=== PATIENT | female | born 1975 | race Caucasian/White ===

== ENCOUNTER → 2017-02-12 | Outpatient (CLI) | payer OTHER ==
[2013-09-06 23:31] VITALS: BP 110/72
[2017-02-12 09:17] LABS: BASOPHILS # (AUTO) 0.1 X10^3/uL (0.0-0.1); BASOPHILS % (AUTO) 1.2 % (0.2-1.0); EOSINOPHILS # (AUTO) 0.1 x10^3/uL (0.0-0.2); EOSINOPHILS % (AUTO) 1.9 % (0.9-2.9); HEMATOCRIT 39.9 % (36.0-47.0); HEMOGLOBIN 13.3 g/dL (12.0-16.0); LYMPHOCYTES # (AUTO) 1.7 X10^3/uL (1.3-2.9); LYMPHOCYTES % (AUTO) 28.9 % (21.0-51.0); MEAN CORPUSCULAR HEMOGLOBIN 28.9 pg (27.0-34.0); MEAN CORPUSCULAR HGB CONC 33.2 g/dL (33.0-35.0); MEAN CORPUSCULAR VOLUME 87.1 fL (80.0-100.0); MEAN PLATELET VOLUME 8.8 fL (7.4-11.0); MONOCYTES # (AUTO) 0.6 x10^3/uL (0.3-0.8); MONOCYTES % (AUTO) 9.8 % (0.0-13.0); NEUTROPHILS # (AUTO) 3.5 x10^3/uL (2.2-4.8); NEUTROPHILS % (AUTO) 58.2 % (42.0-75.0); PLATELET COUNT 241 X10^3/uL (150.0-450.0); RED BLOOD COUNT 4.59 X10^6/uL (3.5-5.4); RED CELL DISTRIBUTION WIDTH 14.8 % (11.6-16.5)
[2017-02-12 10:06] LABS: ALANINE AMINOTRANSFERASE 31 Units/L (12-78); ALBUMIN 3.5 g/dL (3.4-5.0); ALKALINE PHOSPHATASE 47 Units/L (46-116); ASPARTATE AMINO TRANSFERASE 18 Units/L (15-37); BLOOD UREA NITROGEN 17 mg/dL (7-18); CALCIUM 8.4 mg/dL (8.5-10.1); CARBON DIOXIDE 26.6 mmol/L (21-32); CHLORIDE 107 mmol/L (98-107); CREATININE 0.83 mg/dL (0.55-1.02); GLUCOSE 95 mg/dL (65-99); SODIUM 142 mmol/L (136-145); T4 (THYROXINE) 7.7 ug/dL (4.7-13.3); TOTAL PROTEIN 7.1 g/dL (6.4-8.2); TSH (3RD GENERATION) 1.691 uIU/mL (0.358-3.74); eGFR BLACK RACES > 60 (>60); eGFR NON BLACK RACES > 60 (>60)
== END ==
LOC: LAB 08:24
PROVIDERS: ATTEND Internal Medicine
DX: E03.8 Other specified hypothyroidism (principal); E11.9 Type 2 diabetes mellitus without complications
CPT/HCPCS: 36415; 80053; 84436; 84443; 85025

== ENCOUNTER 2017-09-07 13:41 | Emergency (ER) | payer OTHER ==
[2017-09-07] MEDS ORDERED: TORADOL 60 MG VIAL IM ONE (13:49)
--- NOTE | 2017-09-07 13:51 | DR.EXTPAIN ---
HPI - Time seen Time seen: 13:48 - Complaint/Symptoms Chief Complaint Doctor Comments: Patient admits to playing ball on yesterday with her children and twisted her left ankle. She wrapped it and today it is swollen and tender. PMH - PMH Past Surgical History: No - Social History Do you use any recreational Drugs:: No ROS - Review of Systems Eyes: No Symptoms Reported ENTM: No Symptoms Reported Respiratoy: No Symptoms Reported Cardiovascular: No Symptoms Reported Gastrointestinal/Abdominal: No Symptoms Reported Genitourinary: No Symptoms Reported Neurological: No Symptoms Reported Musculoskeletal: Ankle (left swollen) Integumentary: No Symptoms Reported Hematologic/Lymphatic: No Symptoms Reported Endocrine: No Symptoms Reported Psychiatric: No Symptoms Reported All Other Systems: Reviewed and Negative PE - Vital Signs Vitals: Temperature 97.8 F Pulse Rate 98 Respiratory Rate 17 Blood Pressure 116/73 O2 Sat by Pulse Oximetry 97 - General Limitations: No Limitations General Appearance: Alert, In No Apparent Distress - Head Head Exam: Normal Inspection, Atraumatic - Eyes Eye exam: Normal Appearance, PERRL, EOMI - ENT ENT Exam: Normal Exam - Neck Neck Exam: Normal Inspection, Full ROM - Chest Chest Inspection: Normal Inspection - Respiratory Respiratory Exam: Normal Lung Sounds Bilat Respiratory Exam: Bilateral Clear to Auscultation - Cardiovascular Cardiovascular Exam: Regular Rate, Normal Rhythm - Abdominal Exam Abdominal Exam: Normal Inspection Abdominal Tenderness: negative: RUQ, RLQ, LUQ, LLQ, Epigastrium, Suprapubic, Diffuse, Mild, Moderate, Severe, Other - Extremities Extremities Exam: Normal Capillary Refill, Edema (left ankle) - Upper Extremities Shoulder Exam: Normal Inspection Arm Exam: Normal Inspection Elbow Exam: Normal Inspection Forearm Exam: Normal Inspection, Full ROM Hand Exam: Normal Inspection Neuromotor Exam: Normal Exam Neurosensory Exam: Normal Exam Hand Tendon Exam: Flexor Digitorium Profundus (Location) Upper Ext. Vascular Exam: Capillary Refill, Radial Pulse - Lower Extremities Hip/Pelvis Exam: Normal Inspection Upper Leg Exam: Normal Inspection, Full ROM Knee Exam: Normal Inspection Lower Leg Exam: Normal Inspection Ankle Exam: Tenderness, Tenderness over talofibular lig Foot/Toe Exam: Normal Inspection Neurovascular/Tendon Exam: Normal Capillary Refill Gait Exam: Not Tested/Not Observed - Back Back Exam: Normal Inspection - Neurological Neurological Exam: Alert, Oriented X3, CN II-XII Intact - Psychiatric Psychiatric Exam: Normal Affect, Normal Mood - Skin Skin Exam: Warm, Dry, Intact Course - Education/Counseling Education/Counseling: Education Educated On: Treatment, Diagnosis, Prognosis ROR - XRAY XRAY Interpreted by: Radiologist (Ankle: soft tissue swelling, no fracture) - Diagnosis Discharge Problem: Left ankle sprain Qualifiers: Encounter type: initial encounter Involved ligament of ankle: tibiofibular ligament Qualified Code(s): S93.432A - Sprain of tibiofibular ligament of left ankle, initial encounter - Discharge Plan Condition: Stable - Follow ups/Referrals Follow ups/Referrals: Johnie BRO [Primary Care Provider] - 3 days - Instructions
[2017-09-07 14:05] VITALS: BP 116/73; BMI 30.9
[2017-09-07] MEDS ORDERED: TORADOL 60 MG VIAL ONE (14:15)
--- NOTE | 2017-09-07 15:22 | RAD ---
Examination: Left ankle, three views History: Basketball injury Findings: There is moderate soft tissue swelling over the lateral malleolus. There is no evidence for fracture, dislocation or joint space asymmetry. Impression: Soft tissue swelling, no fracture identified. Reported By:
== END 2017-09-07 15:36 | disposition home or self-care (01) ==
LOC: ER 13:41
DX: S93.432A Sprain of tibiofibular ligament of left ankle, initial encounter (principal); W19.XXXA Unspecified fall, initial encounter; Y92.9 Unspecified place or not applicable
CPT/HCPCS: 73610; 96372; 99282; J1885